=== PATIENT | male | born 2000 | race Caucasian/White ===

== ENCOUNTER 2024-07-05 13:53 | Emergency (ER) | payer BC ==
[2024-07-05 14:19] LABS: BASOPHILS ABSOLUTE AUTO 0.04 K/uL (0.00-0.20); BASOPHILS PERCENT AUTO 0.5 % (0.0-2.0); EOSINOPHILS ABSOLUTE AUTO 0.06 K/uL (0.00-0.50); EOSINOPHILS PERCENT AUTO 0.7 % (0.0-5.0); HEMATOCRIT 47.7 % (39.0-49.0); HEMOGLOBIN 16.8 g/dL (13.1-16.8); IMMATURE GRAN ABSOLUTE AUTO 0.01 10^3/uL (0.00-0.04); IMMATURE GRAN PERCENT AUTO 0.1 % (0.0-0.4); LYMPHOCYTES PERCENT AUTO 24.2 % (10.0-50.0); MEAN CORPUSCULAR HEMOGLOBIN 30.5 pg (28.2-33.3); MEAN CORPUSCULAR HGB CONC 35.2 g/dL (31.7-36.0); MEAN CORPUSCULAR VOLUME 86.6 fL (84.0-98.0); MONOCYTES ABSOLUTE AUTO 0.61 K/uL (0.00-1.00); MONOCYTES PERCENT AUTO 7.4 % (2.0-14.0); NEUTROPHILS ABSOLUTE AUTO 5.55 K/uL (1.40-7.00); NEUTROPHILS PERCENT AUTO 67.1 % (45.0-80.0); PLATELET COUNT,PLT 252 K/uL (150-350); RED BLOOD CELL COUNT 5.51 M/uL (4.33-5.41); RED CELL DISTRIBUTION WIDTH 11.8 % (11.2-14.1); WHITE BLOOD CELL COUNT,WBC 8.3 K/uL (4.0-10.2)
[2024-07-05 14:41] LABS: ALANINE AMINOTRANSFERASE,ALT 85 U/L (12-78); ALBUMIN 4.2 g/dL (3.4-5.0); ALKALINE PHOSPHATASE 90 IU/L (46-116); ANION GAP 7.6 meq/L (7-15); ASPARTATE AMNIOTRANSFERASE,AST 52 U/L (15-37); BILIRUBIN TOTAL 0.5 mg/dL (0.2-1.0); BLOOD UREA NITROGEN,BUN 17 mg/dL (7-18); CALCIUM 9.3 mg/dL (8.5-10.1); CARBON DIOXIDE,CO2 28.4 mmol/L (21.0-32.0); CHLORIDE,CL 103 mmol/L (98-107); CREATININE 1.04 mg/dL (0.51-1.17); ESTIMATED GFR 103 mL/min (>=60); GLUCOSE RANDOM 90 mg/dL (70-99); POTASSIUM,K 4.2 mmol/L (3.5-5.1); PROTEIN TOTAL,TP 7.8 g/dL (6.4-8.2); SODIUM,NA 139 mmol/L (136-145)
== END 2024-07-05 14:42 | disposition home or self-care (01) ==
LOC: LL.ED 13:53 → EDBD 13:53 → LL.ED 14:42
DX: S70.362A Insect bite (nonvenomous), left thigh, initial encounter (principal); Z91.048 Other nonmedicinal substance allergy status; W46.0XXA Contact with hypodermic needle, initial encounter
CPT/HCPCS: 36415; 80053; 85025; 99283